=== PATIENT | male | born 1950 | race Two or more races ===

== ENCOUNTER 2023-03-16 20:34 | Inpatient (IN) | payer MEDICARE, OTHER ==
[~2023-03-16] VITALS: Ht 167.6 cm; Wt 65.8 kg
[2023-03-16 21:08] LABS: BASOPHILS % (AUTO) 0.5 % (0.0-2.0); EOSINOPHILS # (AUTO) 0.1 K/uL (0.0-0.7); EOSINOPHILS % (AUTO) 1.2 % (0.0-6.0); HEMATOCRIT 36 % (39-51); HEMOGLOBIN 12.4 g/dL (13.5-17.5); LYMPHOCYTES # (AUTO) 0.8 K/uL (0.8-4.8); LYMPHOCYTES % (AUTO) 12.5 % (20.0-44.0); MEAN CORPUSCULAR HEMOGLOBIN 30 PG (26.0-33.0); MEAN CORPUSCULAR HGB CONC 34 g/dl (31.0-36.0); MEAN CORPUSCULAR VOLUME 88 fL (80-96); MONOCYTES # (AUTO) 0.5 K/uL (0.1-1.30); MONOCYTES % (AUTO) 7.3 % (2.0-12.0); NEUTROPHILS # (AUTO) 5.2 K/uL (1.8-8.9); NEUTROPHILS % (AUTO) 78.5 % (43.0-81.0); PLATELET COUNT (AUTO) 236 K/uL (150-450); RED BLOOD CELL COUNT(AUTO) 4.11 MIL/uL (4.5-6.0); RED CELL DISTRIBUTION WIDTH 12.8 % (11.5-15.0); WHITE BLOOD COUNT (AUTO) 6.6 K/uL (4.3-11.0)
[2023-03-16 21:24] LABS: CARBON DIOXIDE 27 mmol/L (21-32); CHLORIDE 103 mmol/L (98-107); GLUCOSE 349 mg/dL (74-106); POTASSIUM 4.4 mmol/L (3.5-5.1); SODIUM SERUM 137 mmol/L (136-145); UREA NITROGEN, BLOOD 19 mg/dL (7-18)
[2023-03-16 21:29] LABS: ALANINE AMINOTRANSFERASE 19 U/L (12-78); ALBUMIN 3.2 g/dL (3.4-5.0); ALCOHOL, BLOOD < 3 mg/dL (0-10); ALKALINE PHOSPHATASE 156 U/L (46-116); ASPARTATE AMINOTRANSFERASE 12 U/L (15-37); BILIRUBIN,DIRECT 0.1 mg/dL (0.0-0.2); BILIRUBIN,TOTAL 0.3 mg/dL (0.2-1.0); TOTAL PROTEIN, SERUM 7.2 g/dL (6.4-8.2)
[2023-03-16 21:33] LABS: SALICYLATE < 2.3 mg/dL (2.8-20.0)
[2023-03-16 22:46] LABS: ACETAMINOPHEN <10 ug/ml (10-30)
[2023-03-16 23:18] LABS: APPEARANCE,URINE CLEAR (CLEAR); BILIRUBIN,URINE NEGATIVE (NEGATIVE); BLOOD, URINE NEGATIVE Ery/uL (NEGATIVE); COLOR,URINE YELLOW (YELLOW); KETONES,URINE 1+ mg/dL (NEGATIVE); LEUKOCYTE ESTERASE ,URINE NEGATIVE (NEGATIVE); NITRITE, URINE NEGATIVE (NEGATIVE); PROTEIN,URINE NEGATIVE (NEGATIVE); UGLUCOSE 3+ mg/dL (NEGATIVE); UROBILINOGEN,URINE 0.2 EU/dL (0.2)
[2023-03-16 23:20] LABS: ADD URINE CULTURE NO; BACTERIA,URINE Rare /HPF (None Seen); RBC,URINE 0-2 /HPF (0-2); SQUAMOUS EPITHELIAL CELL,UR Few /HPF (None Seen); WBC,URINE 0-2 /HPF (0-3)
[2023-03-16 23:41] LABS: AMPHETAMINE, URINE NEGATIVE (NEGATIVE); BARBITURATE, URINE NEGATIVE (NEGATIVE); BENZODIAZEPINE, URINE NEGATIVE (NEGATIVE); CANNABINOID, URINE NEGATIVE (NEGATIVE); COCCAINE, URINE NEGATIVE (NEGATIVE); OPIATE, URINE NEGATIVE (NEGATIVE); PHENCYCLIDINE SCREEN,URINE NEGATIVE (NEGATIVE)
[2023-03-17 02:30] VITALS: BP 152/91; TEMP 98.2; O2SAT 100
[2023-03-17] MEDS ORDERED: RISP0.5T65 PO (02:48)
[2023-03-17] MEDS ORDERED: FERR325T23 PO (02:49)
[2023-03-17] MEDS ORDERED: MULT-754 PO (02:49)
[2023-03-17] MEDS ORDERED: FURO20TA4 PO (02:51)
[2023-03-17] MEDS ORDERED: ASCO500C6 PO (02:51)
[2023-03-17] MEDS ORDERED: POTA10CA43 PO (02:53)
[2023-03-17] MEDS ORDERED: ZINC220T3 PO (02:55)
[2023-03-17] MEDS ORDERED: ACETAMINOPHEN 325 MG TABLET PO PRN (03:00)
[2023-03-17] MEDS ORDERED: MAG HYDROX/AL HYDROX/SIMETH 30 ML UDC PO PRN (03:00)
[2023-03-17] MEDS ORDERED: MAGNESIUM HYDROXIDE 30 ML UDC PO PRN (03:00)
[2023-03-17] MEDS ORDERED: ZOLPIDEM TARTRATE 5 MG TABLET PO PRN (03:00)
[2023-03-17] MEDS ORDERED: DEXTROSE 50%-WATER 50 ML DISP.SYRIN IV PRN (03:30)
[2023-03-17] MEDS ORDERED: BLOOD SUGAR DIAGNOSTIC 1 EACH STRIP IN ONE (03:30)
[2023-03-17] MEDS: BLOOD SUGAR DIAGNOSTIC 1 EACH STRIP IN SCH ×4 (07:35→21:32)
[2023-03-17] MEDS ORDERED: HONE15GE TP (07:58)
[2023-03-17] MEDS ORDERED: AMIN30LI2 PO (07:58)
[2023-03-17] MEDS ORDERED: ACET-868 PO (07:58)
[2023-03-17 08:00] VITALS: BP 138/88; TEMP 97.8; O2SAT 94
[2023-03-17] MEDS: INSULIN REGULAR, HUMAN 100 UNIT/ML 3 ML VIAL SQ PRN ×3 (08:38→21:37)
[2023-03-17] MEDS: POTASSIUM CHLORIDE 10 MEQ TABLET.SA PO SCH (09:21)
[2023-03-17] MEDS: FERROUS SULFATE (325 MG) 325 MG/TAB TABLET PO SCH ×2 (09:21→16:28)
[2023-03-17] MEDS: ASCORBIC ACID 500 MG TABLET PO SCH ×3 (09:21→16:28)
[2023-03-17] MEDS: FUROSEMIDE 20 MG TABLET PO SCH (09:21)
[2023-03-17] MEDS: MULTIVIT W/MINERALS 1 TAB TABLET PO SCH (09:21)
[2023-03-17] MEDS: ZINC SULFATE 220 MG CAPSULE PO SCH (09:21)
[2023-03-17] MEDS: DIVALPROEX SODIUM 125 MG CAP.SPRINK PO SCH ×2 (12:56→16:28)
[2023-03-17 16:00] VITALS: BP 122/87; TEMP 97.9; O2SAT 99
[2023-03-17 20:00] VITALS: BP 138/78; TEMP 98.1; O2SAT 97
[2023-03-17] MEDS: risperiDONE 1 MG TABLET PO SCH (21:10)
[2023-03-18 07:42] LABS: BASOPHILS % (AUTO) 0.4 % (0.0-2.0); EOSINOPHILS # (AUTO) 0.1 K/uL (0.0-0.7); EOSINOPHILS % (AUTO) 1.2 % (0.0-6.0); HEMATOCRIT 39 % (39-51); LYMPHOCYTES % (AUTO) 14.6 % (20.0-44.0); MEAN CORPUSCULAR HEMOGLOBIN 30 PG (26.0-33.0); MEAN CORPUSCULAR HGB CONC 34 g/dl (31.0-36.0); MEAN CORPUSCULAR VOLUME 89 fL (80-96); MONOCYTES # (AUTO) 0.5 K/uL (0.1-1.30); MONOCYTES % (AUTO) 7.5 % (2.0-12.0); NEUTROPHILS # (AUTO) 5.1 K/uL (1.8-8.9); NEUTROPHILS % (AUTO) 76.3 % (43.0-81.0); PLATELET COUNT (AUTO) 276 K/uL (150-450); RED BLOOD CELL COUNT(AUTO) 4.34 MIL/uL (4.5-6.0); RED CELL DISTRIBUTION WIDTH 12.6 % (11.5-15.0); WHITE BLOOD COUNT (AUTO) 6.7 K/uL (4.3-11.0)
[2023-03-18] MEDS: BLOOD SUGAR DIAGNOSTIC 1 EACH STRIP IN SCH ×4 (07:45→21:37)
[2023-03-18] MEDS: INSULIN REGULAR, HUMAN 100 UNIT/ML 3 ML VIAL SQ PRN ×4 (07:46→21:43)
[2023-03-18 07:59] LABS: CALCIUM, SERUM 9.1 mg/dL (8.5-10.1); CREATININE 0.9 mg/dL (0.6-1.3); POTASSIUM 3.6 mmol/L (3.5-5.1)
[2023-03-18 08:00] VITALS: BP 121/86; TEMP 97.4; O2SAT 98
[2023-03-18] MEDS: FUROSEMIDE 20 MG TABLET PO SCH (08:48)
[2023-03-18] MEDS: ASCORBIC ACID 500 MG TABLET PO SCH ×3 (08:48→16:19)
[2023-03-18] MEDS: MULTIVIT W/MINERALS 1 TAB TABLET PO SCH (08:48)
[2023-03-18] MEDS: FERROUS SULFATE (325 MG) 325 MG/TAB TABLET PO SCH ×2 (08:49→16:19)
[2023-03-18] MEDS: ZINC SULFATE 220 MG CAPSULE PO SCH (08:49)
[2023-03-18] MEDS: DIVALPROEX SODIUM 125 MG CAP.SPRINK PO SCH ×3 (08:49→16:18)
[2023-03-18] MEDS: POTASSIUM CHLORIDE 10 MEQ TABLET.SA PO SCH (08:49)
[2023-03-18 16:00] VITALS: BP 108/69; TEMP 98.6; O2SAT 95
[2023-03-18] MEDS: risperiDONE 1 MG TABLET PO SCH (21:08)
[2023-03-18 21:35] VITALS: BP 125/70; TEMP 98.4; O2SAT 100
[2023-03-19] MEDS: BLOOD SUGAR DIAGNOSTIC 1 EACH STRIP IN SCH ×4 (07:49→22:10)
[2023-03-19 08:00] VITALS: BP 108/79; TEMP 98; O2SAT 100
[2023-03-19] MEDS: POTASSIUM CHLORIDE 10 MEQ TABLET.SA PO SCH (09:06)
[2023-03-19] MEDS: ASCORBIC ACID 500 MG TABLET PO SCH ×3 (09:06→17:37)
[2023-03-19] MEDS: FUROSEMIDE 20 MG TABLET PO SCH (09:06)
[2023-03-19] MEDS: DIVALPROEX SODIUM 125 MG CAP.SPRINK PO SCH ×3 (09:06→17:37)
[2023-03-19] MEDS: MULTIVIT W/MINERALS 1 TAB TABLET PO SCH (09:07)
[2023-03-19] MEDS: ZINC SULFATE 220 MG CAPSULE PO SCH (09:07)
[2023-03-19] MEDS: FERROUS SULFATE (325 MG) 325 MG/TAB TABLET PO SCH ×2 (09:07→17:37)
[2023-03-19] MEDS: INSULIN REGULAR, HUMAN 100 UNIT/ML 3 ML VIAL SQ PRN ×3 (09:08→17:39)
[2023-03-19 16:00] VITALS: BP 96/63; TEMP 98.6; O2SAT 100
[2023-03-19 20:00] VITALS: BP 117/74; TEMP 97.8; O2SAT 98
[2023-03-19] MEDS: risperiDONE 1 MG TABLET PO SCH (21:01)
[2023-03-20] MEDS ORDERED: Z GUARD REMEDY 4 OZ OINT TP PRN (05:00)
[2023-03-20] MEDS: BLOOD SUGAR DIAGNOSTIC 1 EACH STRIP IN SCH ×4 (07:53→21:41)
[2023-03-20 08:00] VITALS: BP 100/87; TEMP 97.9; O2SAT 97
[2023-03-20] MEDS: DIVALPROEX SODIUM 125 MG CAP.SPRINK PO SCH ×3 (08:49→16:54)
[2023-03-20] MEDS: FERROUS SULFATE (325 MG) 325 MG/TAB TABLET PO SCH ×2 (08:49→16:54)
[2023-03-20] MEDS: ASCORBIC ACID 500 MG TABLET PO SCH ×3 (08:49→16:54)
[2023-03-20] MEDS: FUROSEMIDE 20 MG TABLET PO SCH (08:49)
[2023-03-20] MEDS: POTASSIUM CHLORIDE 10 MEQ TABLET.SA PO SCH (08:49)
[2023-03-20] MEDS: MULTIVIT W/MINERALS 1 TAB TABLET PO SCH (08:49)
[2023-03-20] MEDS: Z GUARD REMEDY 4 OZ OINT TP SCH (08:49)
[2023-03-20] MEDS: ZINC SULFATE 220 MG CAPSULE PO SCH (08:49)
[2023-03-20] MEDS: INSULIN REGULAR, HUMAN 100 UNIT/ML 3 ML VIAL SQ PRN ×4 (09:44→21:47)
[2023-03-20] MEDS: LORAZEPAM 0.5 MG TABLET PO PRN ×2 (13:34→19:51)
[2023-03-20 16:00] VITALS: BP 121/74; TEMP 97.4; O2SAT 95
[2023-03-20] MEDS: risperiDONE 1 MG TABLET PO SCH (21:32)
[2023-03-21 08:00] VITALS: BP 109/65; TEMP 98.2; O2SAT 97
[2023-03-21] MEDS: BLOOD SUGAR DIAGNOSTIC 1 EACH STRIP IN SCH ×4 (08:27→21:23)
[2023-03-21] MEDS: POTASSIUM CHLORIDE 10 MEQ TABLET.SA PO SCH (08:34)
[2023-03-21] MEDS: FERROUS SULFATE (325 MG) 325 MG/TAB TABLET PO SCH ×2 (08:34→17:11)
[2023-03-21] MEDS: MULTIVIT W/MINERALS 1 TAB TABLET PO SCH (08:34)
[2023-03-21] MEDS: DIVALPROEX SODIUM 125 MG CAP.SPRINK PO SCH ×3 (08:34→17:11)
[2023-03-21] MEDS: ZINC SULFATE 220 MG CAPSULE PO SCH (08:34)
[2023-03-21] MEDS: Z GUARD REMEDY 4 OZ OINT TP SCH (08:35)
[2023-03-21] MEDS: ASCORBIC ACID 500 MG TABLET PO SCH ×3 (08:35→17:11)
[2023-03-21] MEDS: FUROSEMIDE 20 MG TABLET PO SCH (08:35)
[2023-03-21] MEDS: BENZTROPINE MESYLATE (1 MG) 1 MG TABLET PO SCH ×2 (13:46→17:11)
[2023-03-21] MEDS: INSULIN REGULAR, HUMAN 100 UNIT/ML 3 ML VIAL SQ PRN ×3 (15:02→21:52)
[2023-03-21 16:00] VITALS: BP 117/99; TEMP 98.2; O2SAT 96
[2023-03-21 20:34] VITALS: BP 132/91; TEMP 98.6; O2SAT 97
[2023-03-21] MEDS: risperiDONE 1 MG TABLET PO SCH (21:23)
[2023-03-21] MEDS: LORAZEPAM 0.5 MG TABLET PO PRN (21:49)
[2023-03-22 08:00] VITALS: BP 112/74; TEMP 97.6; O2SAT 100
[2023-03-22] MEDS: BLOOD SUGAR DIAGNOSTIC 1 EACH STRIP IN SCH ×4 (09:30→22:16)
[2023-03-22] MEDS: DIVALPROEX SODIUM 125 MG CAP.SPRINK PO SCH ×3 (09:37→17:14)
[2023-03-22] MEDS: FERROUS SULFATE (325 MG) 325 MG/TAB TABLET PO SCH ×2 (09:37→17:14)
[2023-03-22] MEDS: BENZTROPINE MESYLATE (1 MG) 1 MG TABLET PO SCH ×2 (09:37→17:14)
[2023-03-22] MEDS: Z GUARD REMEDY 4 OZ OINT TP SCH (09:38)
[2023-03-22] MEDS: POTASSIUM CHLORIDE 10 MEQ TABLET.SA PO SCH (09:38)
[2023-03-22] MEDS: MULTIVIT W/MINERALS 1 TAB TABLET PO SCH (09:38)
[2023-03-22] MEDS: ASCORBIC ACID 500 MG TABLET PO SCH ×3 (09:38→17:14)
[2023-03-22] MEDS: ZINC SULFATE 220 MG CAPSULE PO SCH (09:38)
[2023-03-22] MEDS: FUROSEMIDE 20 MG TABLET PO SCH (09:38)
[2023-03-22] MEDS: INSULIN REGULAR, HUMAN 100 UNIT/ML 3 ML VIAL SQ PRN ×4 (09:41→22:18)
[2023-03-22] MEDS: INSULIN GLARGINE, 100 UNIT/ML CARTRIDGE SQ SCH ×2 (13:39→17:18)
[2023-03-22 16:00] VITALS: BP 111/81; TEMP 98.2
[2023-03-22 20:25] VITALS: BP 114/78; TEMP 97.8; O2SAT 97
[2023-03-22] MEDS: risperiDONE 1 MG TABLET PO SCH (22:16)
[2023-03-22] MEDS: TEMAZEPAM 7.5 MG CAPSULE PO PRN (22:16)
[2023-03-23] MEDS: BLOOD SUGAR DIAGNOSTIC 1 EACH STRIP IN SCH ×4 (07:30→21:15)
[2023-03-23 08:00] VITALS: BP 121/70; TEMP 97.9; O2SAT 96
[2023-03-23] MEDS: BENZTROPINE MESYLATE (1 MG) 1 MG TABLET PO SCH ×2 (09:18→17:22)
[2023-03-23] MEDS: FERROUS SULFATE (325 MG) 325 MG/TAB TABLET PO SCH ×2 (09:18→17:22)
[2023-03-23] MEDS: MULTIVIT W/MINERALS 1 TAB TABLET PO SCH (09:18)
[2023-03-23] MEDS: ASCORBIC ACID 500 MG TABLET PO SCH ×3 (09:18→17:22)
[2023-03-23] MEDS: DIVALPROEX SODIUM 125 MG CAP.SPRINK PO SCH ×3 (09:18→17:22)
[2023-03-23] MEDS: ZINC SULFATE 220 MG CAPSULE PO SCH (09:18)
[2023-03-23] MEDS: FUROSEMIDE 20 MG TABLET PO SCH (09:18)
[2023-03-23] MEDS: Z GUARD REMEDY 4 OZ OINT TP SCH (09:19)
[2023-03-23] MEDS: POTASSIUM CHLORIDE 10 MEQ TABLET.SA PO SCH (09:19)
[2023-03-23] MEDS: INSULIN GLARGINE, 100 UNIT/ML CARTRIDGE SQ SCH ×2 (09:20→17:23)
[2023-03-23] MEDS: INSULIN REGULAR, HUMAN 100 UNIT/ML 3 ML VIAL SQ PRN ×3 (10:28→21:24)
[2023-03-23 16:00] VITALS: BP 112/72; TEMP 98.6; O2SAT 99
[2023-03-23 20:29] VITALS: BP 115/70; TEMP 97.8; O2SAT 97
[2023-03-23] MEDS: risperiDONE 1 MG TABLET PO SCH (21:07)
[2023-03-23] MEDS: TEMAZEPAM 7.5 MG CAPSULE PO PRN (21:42)
[2023-03-24] MEDS: LORAZEPAM 0.5 MG TABLET PO PRN (02:53)
[2023-03-24] MEDS: BLOOD SUGAR DIAGNOSTIC 1 EACH STRIP IN SCH ×2 (07:50→12:24)
[2023-03-24 08:00] VITALS: BP 118/77; TEMP 98.2; O2SAT 98
[2023-03-24] MEDS: DIVALPROEX SODIUM 125 MG CAP.SPRINK PO SCH ×2 (08:42→13:04)
[2023-03-24] MEDS: ZINC SULFATE 220 MG CAPSULE PO SCH (08:43)
[2023-03-24] MEDS: Z GUARD REMEDY 4 OZ OINT TP SCH (08:43)
[2023-03-24] MEDS: BENZTROPINE MESYLATE (1 MG) 1 MG TABLET PO SCH (08:43)
[2023-03-24] MEDS: ASCORBIC ACID 500 MG TABLET PO SCH ×2 (08:43→13:04)
[2023-03-24] MEDS: MULTIVIT W/MINERALS 1 TAB TABLET PO SCH (08:43)
[2023-03-24] MEDS: FERROUS SULFATE (325 MG) 325 MG/TAB TABLET PO SCH (08:43)
[2023-03-24] MEDS: POTASSIUM CHLORIDE 10 MEQ TABLET.SA PO SCH (08:43)
[2023-03-24] MEDS: FUROSEMIDE 20 MG TABLET PO SCH (08:43)
[2023-03-24] MEDS: INSULIN GLARGINE, 100 UNIT/ML CARTRIDGE SQ SCH (08:52)
[2023-03-24] MEDS: INSULIN REGULAR, HUMAN 100 UNIT/ML 3 ML VIAL SQ PRN ×2 (08:54→12:26)
== END 2023-03-24 13:45 | DRG 885 ==
LOC: ER 20:35 → GPS 03-17 00:25
PROVIDERS: ADMIT Psychiatry & Neurology Psychosomatic Medicine; ATTEND Student in an Organized Health Care Education/Training Program
DX: F29 Unspecified psychosis not due to a substance or known physiological condition (principal); I11.0 Hypertensive heart disease with heart failure; E11.65 Type 2 diabetes mellitus with hyperglycemia; E46 Unspecified protein-calorie malnutrition; F02.83 Dementia in other diseases classified elsewhere, unspecified severity, with mood disturbance; G93.49 Other encephalopathy; E44.1 Mild protein-calorie malnutrition; F02.84 Dementia in other diseases classified elsewhere, unspecified severity, with anxiety; I50.9 Heart failure, unspecified; G30.9 Alzheimer's disease, unspecified; D64.9 Anemia, unspecified; E86.0 Dehydration; Z20.822 Contact with and (suspected) exposure to COVID-19; F39 Unspecified mood [affective] disorder; F41.9 Anxiety disorder, unspecified; F25.9 Schizoaffective disorder, unspecified; Z68.23 Body mass index [BMI] 23.0-23.9, adult
CPT/HCPCS: 36415; 80048-TC; 80061-TC; 80076-TC; 81001; 82962-TC; 84132-TC; 84443-TC; 85025-TC; 87081-TC; 93970-TC; 97116-TC; 97530-TC; G0480; J1815

== ENCOUNTER 2023-08-01 01:41 | Emergency (ER) | payer MEDICARE, MEDICAID ==
[~2023-08-01] VITALS: Ht 170.2 cm; Wt 63.5 kg
[~2023-08-01 01:41] MED LIST: ACET-868 PO; AMIN30LI2 PO; ASCO500C6 PO; FERR325T23 PO; FURO20TA4 PO; HONE15GE TP; MULT-754 PO; POTA10CA43 PO; RISP0.5T65 PO; ZINC220T3 PO
[2023-08-01 01:50] VITALS: BP 145/77; TEMP 98.3; O2SAT 99
== END 2023-08-01 02:59 ==
LOC: ER 01:44
DX: S01.111A Laceration without foreign body of right eyelid and periocular area, initial encounter (principal); I11.0 Hypertensive heart disease with heart failure; I50.9 Heart failure, unspecified; E11.9 Type 2 diabetes mellitus without complications; G30.1 Alzheimer's disease with late onset; F02.80 Dementia in other diseases classified elsewhere, unspecified severity, without behavioral disturbance, psychotic disturbance, mood disturbance, and anxiety; F20.9 Schizophrenia, unspecified; Z79.899 Other long term (current) drug therapy; X58.XXXA Exposure to other specified factors, initial encounter; Y93.89 Activity, other specified; Y92.89 Other specified places as the place of occurrence of the external cause; Y99.8 Other external cause status

== ENCOUNTER 2023-08-07 22:33 | Inpatient (IN) | payer MEDICARE, OTHER ==
[~2023-08-07] VITALS: Ht 180.3 cm; Wt 60.8 kg
[2023-08-07] MEDS ORDERED: VANCOMYCIN 1 GM /D5W 250 ML PB IV ONE (23:19)
[2023-08-07] MEDS: VANCOMYCIN 1 GM in IV D5W 250 ML IV ONE (23:26)
[2023-08-07] MEDS: IV NS 0.9% 1,000 ML BAG IV ONE (23:26)
[2023-08-07 23:29] LABS: BASOPHILS % (AUTO) 0.1 % (0.0-2.0); EOSINOPHILS % (AUTO) 0.1 % (0.0-6.0); HEMATOCRIT 37 % (39-51); LYMPHOCYTES # (AUTO) 1.1 K/uL (0.8-4.8); MEAN CORPUSCULAR HEMOGLOBIN 30 PG (26.0-33.0); MEAN CORPUSCULAR HGB CONC 33 g/dl (31.0-36.0); MEAN CORPUSCULAR VOLUME 91 fL (80-96); MONOCYTES # (AUTO) 0.8 K/uL (0.1-1.30); MONOCYTES % (AUTO) 4.7 % (2.0-12.0); NEUTROPHILS # (AUTO) 15.7 K/uL (1.8-8.9); NEUTROPHILS % (AUTO) 89.1 % (43.0-81.0); PLATELET COUNT (AUTO) 281 K/uL (150-450); RED BLOOD CELL COUNT(AUTO) 4.04 MIL/uL (4.5-6.0); RED CELL DISTRIBUTION WIDTH 14.9 % (11.5-15.0); WHITE BLOOD COUNT (AUTO) 17.6 K/uL (4.3-11.0)
[2023-08-07 23:42] LABS: CARBON DIOXIDE 32 mmol/L (21-32); CHLORIDE 121 mmol/L (98-107); CREATININE 1.8 mg/dL (0.6-1.3); GLUCOSE 161 mg/dL (74-106); POTASSIUM 3.5 mmol/L (3.5-5.1); UREA NITROGEN, BLOOD 75 mg/dL (7-18)
[2023-08-07 23:46] LABS: SODIUM SERUM 161 mmol/L (136-145)
[2023-08-07 23:48] LABS: ALANINE AMINOTRANSFERASE 26 U/L (12-78); ALBUMIN 2.5 g/dL (3.4-5.0); ALKALINE PHOSPHATASE 130 U/L (46-116); ASPARTATE AMINOTRANSFERASE 15 U/L (15-37); BILIRUBIN,DIRECT 0.1 mg/dL (0.0-0.2); BILIRUBIN,TOTAL 0.1 mg/dL (0.2-1.0); CALCIUM, SERUM 9.2 mg/dL (8.5-10.1); TOTAL PROTEIN, SERUM 7.8 g/dL (6.4-8.2)
[2023-08-07 23:49] LABS: INR 1.07 (0.91-1.10); PROTHROMBIN TIME 11.3 SECS (9.2-11.1)
[2023-08-08 00:01] LABS: LACTIC ACID 2.1 mmol/L (0.4-2.0)
[2023-08-08] MEDS ORDERED: ACETAMINOPHEN 325 MG TABLET PO PRN (00:30)
[2023-08-08] MEDS ORDERED: MAGNESIUM HYDROXIDE 30 ML UDC PO PRN (00:30)
[2023-08-08] MEDS ORDERED: ONDANSETRON HCL/PF 4 MG/2 ML VIAL IVP PRN (00:30)
[2023-08-08] MEDS ORDERED: IV D5W 1,000 ML IV PRN (00:30)
[2023-08-08] MEDS ORDERED: MAG HYDROX/AL HYDROX/SIMETH 30 ML UDC PO PRN (00:30)
[2023-08-08] MEDS ORDERED: Z GUARD REMEDY 4 OZ OINT TP PRN (00:30)
[2023-08-08] MEDS ORDERED: ZOLPIDEM TARTRATE 5 MG TABLET PO PRN (00:30)
[2023-08-08 00:49] LABS: APPEARANCE,URINE CLEAR (CLEAR); BILIRUBIN,URINE NEGATIVE (NEGATIVE); BLOOD, URINE TRACE-INTA Ery/uL (NEGATIVE); COLOR,URINE YELLOW (YELLOW); KETONES,URINE NEGATIVE (NEGATIVE); LEUKOCYTE ESTERASE ,URINE NEGATIVE (NEGATIVE); NITRITE, URINE NEGATIVE (NEGATIVE); PROTEIN,URINE TRACE mg/dl (NEGATIVE); UGLUCOSE NEGATIVE (NEGATIVE)
[2023-08-08 00:53] LABS: ADD URINE CULTURE NO; BACTERIA,URINE Rare /HPF (None Seen); SQUAMOUS EPITHELIAL CELL,UR Rare /HPF (None Seen); WBC,URINE 0-2 /HPF (0-3)
[2023-08-08 01:30] VITALS: BP 132/76; TEMP 97.8; TEMP 97.9; O2SAT 95; O2SAT 98
[2023-08-08] MEDS ORDERED: IV NS 0.9% 1,000 ML BAG IV PRN (02:30)
[2023-08-08] MEDS: IV NS 0.9% 1,000 ML IV PRN (03:06)
[2023-08-08 05:00] VITALS: BP 139/91; TEMP 98.7; O2SAT 97
[2023-08-08] MEDS: PIPERACILLIN /TAZOBACTAM 3.375 G in IV D5W 50 ML IV SCH (05:20)
[2023-08-08] MEDS: DEXTROSE 50%-WATER 50 ML DISP.SYRIN IV PRN (06:12)
[2023-08-08] MEDS: BLOOD SUGAR DIAGNOSTIC 1 EACH STRIP IN SCH (06:53)
[2023-08-08 07:30] VITALS: BP 127/113; TEMP 97.7; O2SAT 100
[2023-08-08] MEDS ORDERED: BLOOD SUGAR DIAGNOSTIC 1 EACH STRIP IN SCH (07:30)
[2023-08-08] MEDS: MULTIVITAMINS,THERAGRAN 1 UDTAB TABLET PO SCH (08:17)
[2023-08-08] MEDS: FERROUS SULFATE (325 MG) 325 MG/TAB TABLET PO SCH (08:17)
[2023-08-08] MEDS: ASCORBIC ACID 500 MG TABLET PO SCH (08:17)
[2023-08-08] MEDS: risperiDONE 0.25 MG TABLET PO SCH ×2 (08:17→16:30)
[2023-08-08] MEDS: PROSTAT (PYXIS) 30 ML UDC PO SCH (08:19)
[2023-08-08] MEDS ORDERED: RISP0.2515 PO (08:42)
[2023-08-08] MEDS ORDERED: BENZ1TAB7 PO (08:42)
[2023-08-08] MEDS ORDERED: SULF1TAB48 PO (08:42)
[2023-08-08] MEDS ORDERED: INSU100V42 SQ (08:42)
[2023-08-08] MEDS ORDERED: INSU100I30 SQ (08:42)
[2023-08-08] MEDS ORDERED: XEROFORM TP (08:42)
[2023-08-08] MEDS ORDERED: LORA-258 PO (08:42)
[2023-08-08] MEDS ORDERED: DIVA125C5 PO (08:42)
[2023-08-08] MEDS: INSULIN REGULAR, HUMAN 100 UNIT/ML 3 ML VIAL SQ PRN (11:46)
[2023-08-08] MEDS: ZOSYN IVPB 2.25 G in IV D5W 50ml IV SCH (11:49)
[2023-08-08] MEDS ORDERED: PIPERACILLIN /TAZOBACTAM 3.375 G in IV D5W 50 ML IV SCH (12:00)
[2023-08-08] MEDS: IV 1/2NS 1000 ML 1,000 ML IV ONE (14:20)
[2023-08-08 16:00] VITALS: BP 127/107; TEMP 98.3; O2SAT 96
[2023-08-08] MEDS: BENZTROPINE MESYLATE (1 MG) 1 MG TABLET PO SCH (16:30)
[2023-08-08] MEDS: DIVALPROEX SODIUM 125 MG CAP.SPRINK PO SCH (16:30)
[2023-08-08 20:00] VITALS: BP_SYST 126; BP_SYST 128; BP_DIAS 75; BP_DIAS 76; TEMP 97.8; TEMP 98.4; O2SAT 97; O2SAT 99
[2023-08-08] MEDS: VANCOMYCIN 1 GM in IV D5W 250ml IV SCH (22:07)
[2023-08-09 07:33] LABS: CALCIUM, SERUM 8.2 mg/dL (8.5-10.1); CREATININE 0.9 mg/dL (0.6-1.3); MAGNESIUM 2.5 mg/dL (1.8-2.4); PHOSPHORUS 2.3 mg/dL (2.5-4.9); POTASSIUM 3.8 mmol/L (3.5-5.1)
[2023-08-09 08:00] VITALS: BP 121/72; TEMP 98.1; O2SAT 94
[2023-08-09 08:01] LABS: BASOPHILS % (AUTO) 0.2 % (0.0-2.0); EOSINOPHILS # (AUTO) 0.1 K/uL (0.0-0.7); EOSINOPHILS % (AUTO) 0.4 % (0.0-6.0); HEMATOCRIT 36 % (39-51); HEMOGLOBIN 11.7 g/dL (13.5-17.5); MEAN CORPUSCULAR HEMOGLOBIN 29 PG (26.0-33.0); MEAN CORPUSCULAR HGB CONC 32 g/dl (31.0-36.0); MEAN CORPUSCULAR VOLUME 91 fL (80-96); MONOCYTES # (AUTO) 0.6 K/uL (0.1-1.30); MONOCYTES % (AUTO) 4.4 % (2.0-12.0); NEUTROPHILS # (AUTO) 12.6 K/uL (1.8-8.9); PLATELET COUNT (AUTO) 236 K/uL (150-450); RED BLOOD CELL COUNT(AUTO) 3.97 MIL/uL (4.5-6.0); RED CELL DISTRIBUTION WIDTH 14.9 % (11.5-15.0); WHITE BLOOD COUNT (AUTO) 14.4 K/uL (4.3-11.0)
[2023-08-09] MEDS: IV 1/2NS 1000 ML 1,000 ML IV ONE (09:06)
[2023-08-09] MEDS ORDERED: IV NS 0.9% 250 ML IV ONE (13:59)
[2023-08-09] MEDS ORDERED: IOHEXOL-300 100 ML VIAL IV ONE (13:59)
[2023-08-09] MEDS ORDERED: CT SWABBABLE VALVE TRANS SET 1 EA INFUS.SET MC ONE (13:59)
[2023-08-09] MEDS: ALPRAZOLAM 0.25 MG TABLET PO PRN (14:11)
[2023-08-09 16:00] VITALS: BP 112/73; TEMP 98.6; O2SAT 98
[2023-08-09] MEDS: K PHOS NEUTRAL 250 MG TABLET PO ONE (16:37)
[2023-08-09] MEDS: PROSOURCE / PROSTAT (PYXIS) 30 ML UDC PO SCH (16:38)
[2023-08-09] MEDS: GLUCERNA SHAKE 237 ML CAN PO SCH (16:38)
[2023-08-09 20:00] VITALS: BP 121/80; TEMP 97.7; O2SAT 98
[2023-08-10 07:30] VITALS: BP 130/72; TEMP 97.7; O2SAT 96
[2023-08-10 07:30] LABS: CALCIUM, SERUM 7.9 mg/dL (8.5-10.1); CREATININE 0.8 mg/dL (0.6-1.3); POTASSIUM 3.5 mmol/L (3.5-5.1)
[2023-08-10 08:54] LABS: BASOPHILS % (AUTO) 0.2 % (0.0-2.0); EOSINOPHILS # (AUTO) 0.1 K/uL (0.0-0.7); EOSINOPHILS % (AUTO) 0.4 % (0.0-6.0); HEMATOCRIT 36 % (39-51); HEMOGLOBIN 11.7 g/dL (13.5-17.5); LYMPHOCYTES # (AUTO) 1.2 K/uL (0.8-4.8); LYMPHOCYTES % (AUTO) 6.9 % (20.0-44.0); MEAN CORPUSCULAR HEMOGLOBIN 30 PG (26.0-33.0); MEAN CORPUSCULAR HGB CONC 32 g/dl (31.0-36.0); MEAN CORPUSCULAR VOLUME 92 fL (80-96); MONOCYTES # (AUTO) 0.6 K/uL (0.1-1.30); MONOCYTES % (AUTO) 3.7 % (2.0-12.0); NEUTROPHILS # (AUTO) 15.1 K/uL (1.8-8.9); NEUTROPHILS % (AUTO) 88.8 % (43.0-81.0); PLATELET COUNT (AUTO) 254 K/uL (150-450); RED BLOOD CELL COUNT(AUTO) 3.94 MIL/uL (4.5-6.0); RED CELL DISTRIBUTION WIDTH 14.5 % (11.5-15.0)
[2023-08-10 09:16] LABS: ALBUMIN 1.9 g/dL (3.4-5.0); BILIRUBIN,DIRECT 0.1 mg/dL (0.0-0.2); BILIRUBIN,TOTAL 0.3 mg/dL (0.2-1.0); TOTAL PROTEIN, SERUM 6.6 g/dL (6.4-8.2)
[2023-08-10] MEDS: VANCOMYCIN 0.75 GM in IV D5W 250 ML IV SCH (11:30)
[2023-08-10 16:29] VITALS: BP 108/67; TEMP 97.7; O2SAT 98
[2023-08-10 20:00] VITALS: BP 121/81; TEMP 97.9; O2SAT 98
[2023-08-11 07:02] LABS: ALBUMIN 1.6 g/dL (3.4-5.0); BILIRUBIN,TOTAL 0.4 mg/dL (0.2-1.0); CALCIUM, SERUM 7.6 mg/dL (8.5-10.1); CREATININE 0.7 mg/dL (0.6-1.3); POTASSIUM 3.6 mmol/L (3.5-5.1); TOTAL PROTEIN, SERUM 6.1 g/dL (6.4-8.2)
[2023-08-11 07:37] LABS: BASOPHILS % (AUTO) 0.1 % (0.0-2.0); EOSINOPHILS % (AUTO) 0.4 % (0.0-6.0); HEMATOCRIT 41 % (39-51); HEMOGLOBIN 13.3 g/dL (13.5-17.5); LYMPHOCYTES % (AUTO) 9.6 % (20.0-44.0); MEAN CORPUSCULAR HEMOGLOBIN 30 PG (26.0-33.0); MEAN CORPUSCULAR HGB CONC 32 g/dl (31.0-36.0); MEAN CORPUSCULAR VOLUME 92 fL (80-96); MONOCYTES # (AUTO) 0.3 K/uL (0.1-1.30); NEUTROPHILS # (AUTO) 9.4 K/uL (1.8-8.9); NEUTROPHILS % (AUTO) 86.9 % (43.0-81.0); PLATELET COUNT (AUTO) 194 K/uL (150-450); RED BLOOD CELL COUNT(AUTO) 4.47 MIL/uL (4.5-6.0); RED CELL DISTRIBUTION WIDTH 14.2 % (11.5-15.0); WHITE BLOOD COUNT (AUTO) 10.8 K/uL (4.3-11.0)
[2023-08-11 08:38] LABS: EOSINOPHILS % (MANUAL) 1 % (0-4); PLATELET ESTIMATE ADEQUATE
[2023-08-11 08:42] LABS: BAND % (MANUAL) 4 % (0.0-5.0); LYMPHOCYTES % (MANUAL) 8 % (16-48); MONOCYTES % (MANUAL) 3 % (0-11.0); NEUTROPHILS % (MANUAL) 83 (42-76)
[2023-08-11 08:43] LABS: BASOPHILS % (MANUAL) 1 % (0.0-2.0)
[2023-08-11 08:52] VITALS: BP 132/98; TEMP 97.5; O2SAT 96
[2023-08-11 16:12] VITALS: BP 127/84; TEMP 98.6; O2SAT 96
[2023-08-11] MEDS: IV 1/2NS 1000 ML 1,000 ML IV PRN (18:50)
[2023-08-12] MEDS: ACETAMINOPHEN 325 MG TABLET PO PRN (00:15)
[2023-08-12 07:32] LABS: ALBUMIN 1.7 g/dL (3.4-5.0); BILIRUBIN,TOTAL 0.3 mg/dL (0.2-1.0); CALCIUM, SERUM 7.6 mg/dL (8.5-10.1); CREATININE 0.6 mg/dL (0.6-1.3); POTASSIUM 3.6 mmol/L (3.5-5.1); TOTAL PROTEIN, SERUM 6.3 g/dL (6.4-8.2)
[2023-08-12 07:33] LABS: BASOPHILS % (AUTO) 0.1 % (0.0-2.0); EOSINOPHILS % (AUTO) 0.3 % (0.0-6.0); HEMATOCRIT 34 % (39-51); HEMOGLOBIN 11.2 g/dL (13.5-17.5); LYMPHOCYTES # (AUTO) 1.2 K/uL (0.8-4.8); MEAN CORPUSCULAR HEMOGLOBIN 30 PG (26.0-33.0); MEAN CORPUSCULAR HGB CONC 33 g/dl (31.0-36.0); MEAN CORPUSCULAR VOLUME 90 fL (80-96); MONOCYTES # (AUTO) 0.3 K/uL (0.1-1.30); MONOCYTES % (AUTO) 2.6 % (2.0-12.0); NEUTROPHILS # (AUTO) 11.9 K/uL (1.8-8.9); PLATELET COUNT (AUTO) 262 K/uL (150-450); RED BLOOD CELL COUNT(AUTO) 3.77 MIL/uL (4.5-6.0); RED CELL DISTRIBUTION WIDTH 13.6 % (11.5-15.0); WHITE BLOOD COUNT (AUTO) 13.6 K/uL (4.3-11.0)
[2023-08-12 09:03] VITALS: BP 94/66; TEMP 97.9; O2SAT 95
[2023-08-12 16:13] VITALS: BP 128/75; TEMP 97.9; O2SAT 100
[2023-08-12 20:00] VITALS: BP 138/81; TEMP 97.9; O2SAT 99
[2023-08-13 08:00] VITALS: BP 136/78; TEMP 98.4; O2SAT 94
[2023-08-13 08:36] LABS: CALCIUM, SERUM 7.3 mg/dL (8.5-10.1); CREATININE 0.7 mg/dL (0.6-1.3); POTASSIUM 3.2 mmol/L (3.5-5.1)
[2023-08-13 09:27] LABS: BASOPHILS % (AUTO) 0.1 % (0.0-2.0); EOSINOPHILS % (AUTO) 0.2 % (0.0-6.0); HEMATOCRIT 35 % (39-51); HEMOGLOBIN 11.4 g/dL (13.5-17.5); LYMPHOCYTES # (AUTO) 0.9 K/uL (0.8-4.8); LYMPHOCYTES % (AUTO) 7.5 % (20.0-44.0); MEAN CORPUSCULAR HEMOGLOBIN 29 PG (26.0-33.0); MEAN CORPUSCULAR HGB CONC 33 g/dl (31.0-36.0); MEAN CORPUSCULAR VOLUME 88 fL (80-96); MONOCYTES # (AUTO) 0.3 K/uL (0.1-1.30); MONOCYTES % (AUTO) 2.7 % (2.0-12.0); NEUTROPHILS # (AUTO) 10.6 K/uL (1.8-8.9); NEUTROPHILS % (AUTO) 89.5 % (43.0-81.0); PLATELET COUNT (AUTO) 361 K/uL (150-450); RED BLOOD CELL COUNT(AUTO) 3.94 MIL/uL (4.5-6.0); RED CELL DISTRIBUTION WIDTH 13.5 % (11.5-15.0); WHITE BLOOD COUNT (AUTO) 11.8 K/uL (4.3-11.0)
[2023-08-13 09:45] LABS: ALBUMIN 1.8 g/dL (3.4-5.0); BILIRUBIN,TOTAL 0.3 mg/dL (0.2-1.0); CALCIUM, SERUM 7.9 mg/dL (8.5-10.1); CREATININE 0.7 mg/dL (0.6-1.3); POTASSIUM 3.1 mmol/L (3.5-5.1); TOTAL PROTEIN, SERUM 7.1 g/dL (6.4-8.2)
[2023-08-13] MEDS: POTASSIUM CHLORIDE 20 MEQ TAB.PRT.SR PO SCH (10:50)
[2023-08-13] MEDS: ZOSYN IVPB 3.375 G in IV D5W 50ml IV SCH (12:30)
[2023-08-13 16:00] VITALS: BP 117/83; TEMP 97.9; O2SAT 94
[2023-08-13 20:00] VITALS: BP 112/72; TEMP 98.4; O2SAT 98
[2023-08-14 06:39] LABS: BASOPHILS % (AUTO) 0.1 % (0.0-2.0); EOSINOPHILS # (AUTO) 0.1 K/uL (0.0-0.7); EOSINOPHILS % (AUTO) 0.6 % (0.0-6.0); HEMATOCRIT 32 % (39-51); HEMOGLOBIN 10.9 g/dL (13.5-17.5); LYMPHOCYTES # (AUTO) 1.2 K/uL (0.8-4.8); LYMPHOCYTES % (AUTO) 11.4 % (20.0-44.0); MEAN CORPUSCULAR HEMOGLOBIN 30 PG (26.0-33.0); MEAN CORPUSCULAR HGB CONC 34 g/dl (31.0-36.0); MEAN CORPUSCULAR VOLUME 89 fL (80-96); MONOCYTES # (AUTO) 0.4 K/uL (0.1-1.30); MONOCYTES % (AUTO) 3.7 % (2.0-12.0); NEUTROPHILS # (AUTO) 8.5 K/uL (1.8-8.9); NEUTROPHILS % (AUTO) 84.2 % (43.0-81.0); PLATELET COUNT (AUTO) 332 K/uL (150-450); RED CELL DISTRIBUTION WIDTH 13.5 % (11.5-15.0); WHITE BLOOD COUNT (AUTO) 10.1 K/uL (4.3-11.0)
[2023-08-14 07:04] LABS: CREATININE 0.6 mg/dL (0.6-1.3); POTASSIUM 3.6 mmol/L (3.5-5.1)
[2023-08-14 07:30] VITALS: BP 140/91; TEMP 98.1; O2SAT 99
[2023-08-14 16:00] VITALS: BP 136/52; TEMP 98.1; O2SAT 98
[2023-08-14 21:10] VITALS: BP 144/64; TEMP 97.9
[2023-08-14] MEDS: VANCOMYCIN 1 GM in IV D5W 250 ML IV SCH (23:26)
[2023-08-14] MEDS: DEXTROSE 50%-WATER 50 ML DISP.SYRIN ONE (23:35)
[2023-08-14] MEDS: PIPERACI/TAZO 3.375GM/D5W 50ML PB IV ONE (23:35)
[2023-08-15 07:12] LABS: BASOPHILS % (AUTO) 0.1 % (0.0-2.0); EOSINOPHILS % (AUTO) 0.2 % (0.0-6.0); HEMATOCRIT 35 % (39-51); HEMOGLOBIN 11.7 g/dL (13.5-17.5); LYMPHOCYTES # (AUTO) 0.9 K/uL (0.8-4.8); LYMPHOCYTES % (AUTO) 10.4 % (20.0-44.0); MEAN CORPUSCULAR HEMOGLOBIN 30 PG (26.0-33.0); MEAN CORPUSCULAR HGB CONC 34 g/dl (31.0-36.0); MEAN CORPUSCULAR VOLUME 88 fL (80-96); MONOCYTES # (AUTO) 0.3 K/uL (0.1-1.30); MONOCYTES % (AUTO) 3.8 % (2.0-12.0); NEUTROPHILS # (AUTO) 7.3 K/uL (1.8-8.9); NEUTROPHILS % (AUTO) 85.5 % (43.0-81.0); PLATELET COUNT (AUTO) 505 K/uL (150-450); RED BLOOD CELL COUNT(AUTO) 3.94 MIL/uL (4.5-6.0); RED CELL DISTRIBUTION WIDTH 13.4 % (11.5-15.0); WHITE BLOOD COUNT (AUTO) 8.5 K/uL (4.3-11.0)
[2023-08-15 07:19] LABS: CALCIUM, SERUM 7.7 mg/dL (8.5-10.1); CREATININE 0.6 mg/dL (0.6-1.3); MAGNESIUM 1.9 mg/dL (1.8-2.4); PHOSPHORUS 3.2 mg/dL (2.5-4.9); POTASSIUM 3.9 mmol/L (3.5-5.1)
[2023-08-15 07:30] VITALS: BP 129/97; TEMP 97.1; O2SAT 100
[2023-08-15 16:00] VITALS: BP_SYST 100; BP_SYST 123; BP_DIAS 57; BP_DIAS 81; TEMP 97.5; TEMP 98.4; O2SAT 100; O2SAT 98
[2023-08-16 06:59] LABS: BASOPHILS % (AUTO) 0.1 % (0.0-2.0); EOSINOPHILS % (AUTO) 0.2 % (0.0-6.0); HEMATOCRIT 32 % (39-51); LYMPHOCYTES % (AUTO) 12.1 % (20.0-44.0); MEAN CORPUSCULAR HEMOGLOBIN 30 PG (26.0-33.0); MEAN CORPUSCULAR HGB CONC 34 g/dl (31.0-36.0); MEAN CORPUSCULAR VOLUME 88 fL (80-96); MONOCYTES # (AUTO) 0.4 K/uL (0.1-1.30); MONOCYTES % (AUTO) 5.2 % (2.0-12.0); NEUTROPHILS # (AUTO) 6.9 K/uL (1.8-8.9); NEUTROPHILS % (AUTO) 82.4 % (43.0-81.0); PLATELET COUNT (AUTO) 570 K/uL (150-450); RED BLOOD CELL COUNT(AUTO) 3.68 MIL/uL (4.5-6.0); WHITE BLOOD COUNT (AUTO) 8.3 K/uL (4.3-11.0)
[2023-08-16 07:30] LABS: ALANINE AMINOTRANSFERASE 28 U/L (12-78); ALBUMIN 1.9 g/dL (3.4-5.0); ALKALINE PHOSPHATASE 96 U/L (46-116); ASPARTATE AMINOTRANSFERASE 26 U/L (15-37); BILIRUBIN,DIRECT 0.1 mg/dL (0.0-0.2); BILIRUBIN,TOTAL 0.3 mg/dL (0.2-1.0); CALCIUM, SERUM 8.3 mg/dL (8.5-10.1); CARBON DIOXIDE 28 mmol/L (21-32); CHLORIDE 102 mmol/L (98-107); CREATININE 0.9 mg/dL (0.6-1.3); GLUCOSE 188 mg/dL (74-106); POTASSIUM 3.8 mmol/L (3.5-5.1); SODIUM SERUM 136 mmol/L (136-145); TOTAL PROTEIN, SERUM 6.8 g/dL (6.4-8.2); UREA NITROGEN, BLOOD 7 mg/dL (7-18)
[2023-08-16 08:00] VITALS: BP 120/83; TEMP 98.1; O2SAT 99
[2023-08-16 16:06] VITALS: BP 129/79; TEMP 98.2; O2SAT 100
[2023-08-16 21:04] VITALS: BP 144/80; TEMP 98.9; O2SAT 94
[2023-08-17] MEDS: diphenhydrAMINE HCL ELIX 25 MG/10 ML UDC PO PRN (00:23)
[2023-08-17 07:02] LABS: CALCIUM, SERUM 8.4 mg/dL (8.5-10.1); CREATININE 1.1 mg/dL (0.6-1.3); MAGNESIUM 2.1 mg/dL (1.8-2.4); PHOSPHORUS 3.5 mg/dL (2.5-4.9); POTASSIUM 3.5 mmol/L (3.5-5.1)
[2023-08-17 07:11] LABS: BASOPHILS % (AUTO) 0.1 % (0.0-2.0); EOSINOPHILS % (AUTO) 0.5 % (0.0-6.0); HEMATOCRIT 30 % (39-51); HEMOGLOBIN 10.4 g/dL (13.5-17.5); LYMPHOCYTES % (AUTO) 12.9 % (20.0-44.0); MEAN CORPUSCULAR HEMOGLOBIN 30 PG (26.0-33.0); MEAN CORPUSCULAR HGB CONC 34 g/dl (31.0-36.0); MEAN CORPUSCULAR VOLUME 87 fL (80-96); MONOCYTES # (AUTO) 0.6 K/uL (0.1-1.30); MONOCYTES % (AUTO) 7.7 % (2.0-12.0); NEUTROPHILS # (AUTO) 6.1 K/uL (1.8-8.9); NEUTROPHILS % (AUTO) 78.8 % (43.0-81.0); PLATELET COUNT (AUTO) 576 K/uL (150-450); RED BLOOD CELL COUNT(AUTO) 3.48 MIL/uL (4.5-6.0); RED CELL DISTRIBUTION WIDTH 13.3 % (11.5-15.0); WHITE BLOOD COUNT (AUTO) 7.7 K/uL (4.3-11.0)
[2023-08-17 08:00] VITALS: BP 122/52; TEMP 98.6; O2SAT 99
[2023-08-17] MEDS: PIPERACILLIN /TAZOBACTAM 3.375 G in IV D5W 100 ML IV SCH (12:37)
== END 2023-08-17 15:32 | DRG 871 ==
LOC: ER 22:35 → TELE 08-08 00:51 → MED 08-09 15:00
PROVIDERS: ADMIT Student in an Organized Health Care Education/Training Program; ATTEND Nurse Practitioner Family
PROC: 0X983ZZ Drainage of Right Upper Arm, Percutaneous Approach (ICD-10-PCS; principal; 2023-08-17)
DX: A41.9 Sepsis, unspecified organism (principal); E43 Unspecified severe protein-calorie malnutrition; N17.0 Acute kidney failure with tubular necrosis; L03.113 Cellulitis of right upper limb; E87.0 Hyperosmolality and hypernatremia; G93.49 Other encephalopathy; Z68.1 Body mass index [BMI] 19.9 or less, adult; F02.83 Dementia in other diseases classified elsewhere, unspecified severity, with mood disturbance; F02.84 Dementia in other diseases classified elsewhere, unspecified severity, with anxiety; I11.0 Hypertensive heart disease with heart failure; I50.9 Heart failure, unspecified; G30.9 Alzheimer's disease, unspecified; D64.9 Anemia, unspecified; E11.9 Type 2 diabetes mellitus without complications; Z20.822 Contact with and (suspected) exposure to COVID-19; F25.9 Schizoaffective disorder, unspecified; Z66 Do not resuscitate; Z79.4 Long term (current) use of insulin; F39 Unspecified mood [affective] disorder; F41.9 Anxiety disorder, unspecified; S40.021A Contusion of right upper arm, initial encounter; X58.XXXA Exposure to other specified factors, initial encounter; Y93.9 Activity, unspecified; Y92.129 Unspecified place in nursing home as the place of occurrence of the external cause
CPT/HCPCS: 36415; 71045-TC; 75989; 76882; 80048-TC; 80053-TC; 80076-TC; 80202-TC; 81001; 82962-TC; 83605-TC; 83735-TC; 84100-TC; 84484-TC; 85025-TC; 85730-TC; 87040-TC; 87081-TC; 87086-TC; 92526; 92611-TC; 93971-TC; A4223; A6253; A6407; G0378; J1815; J2543; J3370; J3490; J7030; J7042; J7050; J7060; Q0163; Q9967

== ENCOUNTER 2023-08-20 17:11 | Emergency (ER) | payer MEDICARE, OTHER ==
[~2023-08-20] VITALS: Ht 160 cm; Wt 57.6 kg
[~2023-08-20 17:11] MED LIST changes: -AMIN30LI2 PO; -ASCO500C6 PO; +BENZ1TAB7 PO; +DIVA125C5 PO; -FERR325T23 PO; -HONE15GE TP; +INSU100I30 SQ; +INSU100V42 SQ; +LORA-258 PO; -MULT-754 PO; +RISP0.2515 PO; -RISP0.5T65 PO; +SULF1TAB48 PO; +XEROFORM TP; -ZINC220T3 PO
[2023-08-20 19:26] VITALS: BP 138/71; TEMP 98.1; O2SAT 100
== END 2023-08-20 19:44 ==
LOC: ER 17:18
DX: A41.9 Sepsis, unspecified organism (principal); I10 Essential (primary) hypertension; E11.9 Type 2 diabetes mellitus without complications; Z79.899 Other long term (current) drug therapy